=== PATIENT | female | born 1945 | race Caucasian/White ===

== ENCOUNTER 2018-01-13 07:10 | Observation (INO) ==
[2018-01-13 07:55] LABS: Basophils % 0.3 %; Eosinophils # 0.4 K/mcL (0.0-0.6); Eosinophils % 4.5 %; Hematocrit 40.2 % (35.3-44.9); Hemoglobin 13.2 g/dL (11.5-15.4); Immature Granulocytes % 0.2 % (0-4); Lymphocytes # 1.6 K/mcL (0.6-4.6); Lymphocytes % 17.9 %; Mean Corpuscular HGB Conc 32.8 g/dL (31.6-35.5); Mean Corpuscular Hemoglobin 29.6 pg (28.0-33.3); Mean Corpuscular Volume 90.1 fL (83.0-100.0); Mean Platelet Volume 10.6 fL (9.4-12.4); Monocytes # 0.8 K/mcL (0.0-1.3); Monocytes % 8.6 %; Platelet Count 250 K/mcL (140-400); Red Blood Count 4.46 M/mcL (3.82-4.97); Segmented Neutrophils % 68.5 %
[2018-01-13 08:00] LABS: Prothrombin Time 10.8 Seconds (9.4-12.1)
--- NOTE | 2018-01-13 08:02 | Emergency Department Note ---
Disposition Clinical Impression: Dizziness Disposition: Admitted As Inpatient Condition: Fair Referrals: Sosa Tuttle MD [Primary Care Provider] - Forms: ED Satisfaction Letter Time of Disposition: 11:37 Dizziness HPI - General Chief Complaint: ED Dizziness Stated Complaint: dizziness/elevated BP Time Seen by Provider: 01/13/18 07:21 Source: patient, family Limitations: no limitations Nursing Notes Reviewed: Yes Vital Signs Reviewed: Yes - History of Present Illness HPI Narrative: Alert and oriented nontoxic-appearing 72-year-old female presents for evaluation of dizziness, lightheadedness, visual disturbances, and elevated blood pressure. Symptoms began abruptly as she woke up at 4:30 AM to use the restroom. She describes a sensation of the room spinning. She denies any previous episodes such as this. She states that she did have a hard time walking to the bathroom, she had to hold onto the boyd and counters in order to ambulate without falling. She states symptoms did slightly improve with rest and immobilization. Symptoms are markedly worse with any type of movement. She denies any vomiting but states that she did feel nauseated when symptoms were at its worst. She does state significant improvement as of right now while she is lying in the bed. She denied any chest pain or palpitations. She does complain of being slightly short of breath over the past few days but denies any cough or hemoptysis. She denies any numbness/tingling/weakness of the extremities. She does complain of a headache, however states that she has a history of migraines. She states that her headache is much improved since symptom onset. She stated that her blood pressure was 190/84 upon wakening. She did take her regularly prescribed dose of Toprol-XL 25 mg. At the time of my examination, her blood pressure is 150 systolic. Pt Subjective Complaint: dizziness, lightheadedness, other (I blood pressure, visual disturbances) Onset (ago): hour(s) (0430) Timing: sudden onset Description: "room spinning" History of similar episodes: No History of trauma: No Severity: moderate Improves with: remaining still Worsens with: movement Associated symptoms: Reports: ataxia, shortness of breath, vision changes, nausea. Denies: chest pain, confusion, diaphoresis, fever, chills, malaise, syncope, weakness, vomiting, palpitations - Related Data Allergies Allergy/AdvReac Type Severity Reaction Status Date / Time No Known Allergies Allergy Verified 01/13/18 07:12 All systems ED: reviewed and negative except as stated. Constitutional: Denies: fever, chills, weakness, weight change Eyes: Reports: as per HPI, vision change. Denies: eye pain, eye discharge ENT ED: Denies: ear pain, throat pain, dental pain, hearing loss, epistaxis, congestion, dysphagia Cardiovascular: Denies: chest pain, palpitations, dyspnea on exertion, edema, syncope Respiratory: Denies: cough, dyspnea, wheezes, hemoptysis, stridor Gastrointestinal: Reports: as per HPI, nausea. Denies: abdominal pain, vomiting , diarrhea, constipation, hematemesis, melena, hematochezia Genitourinary: Denies: dysuria, frequency, hematuria, discharge Musculoskeletal: Denies: back pain, neck pain, arthralgia, myalgia Integumentary: Denies: rash, abrasion, lesions Neurological: Reports: as per HPI, headache, other (Dizziness, lightheadedness) . Denies: weakness, numbness, paresthesias, confusion, abnormal gait, vertigo Psychiatric: Denies: anxiety, depression, suicidal thoughts, homicidal thoughts , auditory hallucinations, visual hallucinations Endocrine: Denies: fatigue Hematological/Lymphatic: Denies: easy bleeding, easy bruising Allergic/Immunologic: Denies: facial swelling, urticaria Past Medical History - Past Medical History Attestation: Yes The following information was validated with the patient. Source: patient, nursing notes reviewed Medical history: Reports: hypertension Psychiatric history: Reports: no psych history - Social History Smoking Status: Never smoker Smokeless Tobacco Status: No Alcohol use: Reports: none Drug use: Reports: none Physical Exam - General Limitations: no limitations General appearance: alert, in no apparent distress - Head Head exam: atraumatic, normocephalic, normal inspection - Eye Eye exam: Present: normal appearance, PERRL, EOMI, nystagmus (Horizontal nystagmus with fast component to the right) - Expanded Eye Exam Pupils: Bilateral: regular, round, reactive, size (3) - ENT ENT exam: mucous membranes moist - Expanded ENT Exam TM/Canal: Hemotympanum: Negative, Erythema: Negative, Bulging: Negative, Effusion: Negative, Perforation: Negative, Loss of Landmarks: Negative, Foreign body: Negative, Cerumen impaction: Negative, Canal discharge: Negative, Canal tenderness: Negative - Neck Neck exam: Present: normal inspection, full ROM, trachea midline. Absent: tenderness, meningismus, lymphadenopathy - Chest Chest inspection: Present: normal inspection, symmetric chest wall rise - Respiratory Respiratory exam: Present: normal lung sounds bilaterally. Absent: respiratory distress, wheezes, stridor, accessory muscle use, prolonged expiratory phase - Cardiovascular Cardiovascular exam: Present: regular rate, normal rhythm, normal heart sounds - Abdominal Exam Abdominal exam: Present: soft, Non-Tender, normal bowel sounds - Extremities Exam Extremities exam: Present: normal inspection, full ROM. Absent: tenderness, pedal edema - Neurological Exam Neurological exam: Present: alert, oriented X3. Absent: motor sensory deficit - Expanded Neurological Exam Motor strength - LUE: 5/5 Motor strength - RUE: 5/5 Motor strength - LLE: 5/5 Motor strength - RLE: 5/5 Coma Scale Eye Opening: Spontaneous Coma Scale Motor Response: Obeys Commands Coma Scale Verbal Response: Oriented Coma Scale Total: 15 - Psychiatric Psychiatric exam: Present: normal affect, normal mood - Skin Skin exam: Present: warm, dry, intact, normal color. Absent: rash Course - Reevaluation(s) Reevaluation #1: The patient does state significant improvement in symptoms after the administration of Antivert however she is still slightly lightheaded and slightly ataxic with her gait when she ambulated to the restroom. I discussed this with Dr. Salinas. Dr. Salinas is in agreement with ordering an MRI of the brain without contrast to further evaluate. Time: 09:19 Vital Signs Temperature 97.6 F 01/13/18 07:12 Pulse Rate 75 01/13/18 07:12 Respiratory Rate 16 01/13/18 07:12 Blood Pressure 178/96 01/13/18 07:12 O2 Sat by Pulse Oximetry 96 01/13/18 07:12 Temperature 97.6 F 01/13/18 07:12 Pulse Rate 68 01/13/18 08:53 Respiratory Rate 18 01/13/18 07:51 Blood Pressure 158/71 01/13/18 08:53 O2 Sat by Pulse Oximetry 95 01/13/18 07:51 Oxygen Delivery Oxygen Delivery Room Air Dizziness - Medical Records Medical records reviewed: Yes I reviewed the patient's medical records. - Lab Data Lab results reviewed: Yes I reviewed the patient's lab results. Result diagrams: 01/13/18 07:45 01/13/18 07:45 Lab Results 01/13/18 01/13/18 01/13/18 Range/Units 07:45 07:45 07:45 WBC 8.8 (4.3-11.1) K/mcL RBC 4.46 (3.82-4.97) M/mcL Hgb 13.2 (11.5-15.4) g/dL Hct 40.2 (35.3-44.9) % MCV 90.1 (83.0-100.0) fL MCH 29.6 (28.0-33.3) pg MCHC 32.8 (31.6-35.5) g/dL RDW 13.0 (11.5-14.5) % Plt Count 250 (140-400) K/mcL MPV 10.6 (9.4-12.4) fL Immature Gran % 0.2 (0-4) % Seg Neutrophils % 68.5 % Lymphocytes % 17.9 % Monocytes % 8.6 % Eosinophils % 4.5 % Basophils % 0.3 % Neutrophils # 6.0 (1.6-8.9) K/mcL Lymphocytes # 1.6 (0.6-4.6) K/mcL Monocytes # 0.8 (0.0-1.3) K/mcL Eosinophils # 0.4 (0.0-0.6) K/mcL Basophils # 0.0 (0.0-0.2) K/mcL PT 10.8 (9.4-12.1) Seconds INR 1.0 APTT 30.6 (26.0-36.0) Seconds Sodium 140 (136-145) mEq/L Potassium 3.8 (3.5-5.1) mEq/L Chloride 105 (98-107) mEq/L Carbon Dioxide 28 (23-29) mEq/L BUN 15 (8-23) mg/dL Creatinine 0.59 L (0.60-1.20) mg/dL Est GFR ( Amer) > 60 (> 60) Est GFR (Non-Af Amer) > 60 (> 60) BUN/Creatinine Ratio 25 (6-26) Glucose 113 H (70-105) mg/dL Calculated Osmolality 292 (280-300) Calcium 8.9 (8.6-10.3) mg/dL Troponin I < 0.03 (< 0.04) ng/mL Urine Color (Yellow) Urine Clarity (Clear) Urine pH (5.0-8.0) pH Units Ur Specific [place] (1.010-1.025) Urine Protein (Neg-Trace) mg/dL Urine Glucose (UA) (Normal) mg/dL Urine Ketones (Negative) mg/dL Urine Blood (Negative) Urine Nitrite (Negative) Urine Bilirubin (Negative) Urine Urobilinogen (Normal) mg/dL Ur Leukocyte Esterase (Negative) Urine Microscopic RBC (0-3) per hpf Urine Microscopic WBC (0-3) per hpf Ur Squamous Epith Cells (None-Few) per lpf Urine Bacteria (None-Few) per hpf Hyaline Casts (None-Few) per lpf Ur Culture Indicated? (NO) 01/13/18 Range/Units 08:25 WBC (4.3-11.1) K/mcL RBC (3.82-4.97) M/mcL Hgb (11.5-15.4) g/dL Hct (35.3-44.9) % MCV (83.0-100.0) fL MCH (28.0-33.3) pg MCHC (31.6-35.5) g/dL RDW (11.5-14.5) % Plt Count (140-400) K/mcL MPV (9.4-12.4) fL Immature Gran % (0-4) % Seg Neutrophils % % Lymphocytes % % Monocytes % % Eosinophils % % Basophils % % Neutrophils # (1.6-8.9) K/mcL Lymphocytes # (0.6-4.6) K/mcL Monocytes # (0.0-1.3) K/mcL Eosinophils # (0.0-0.6) K/mcL Basophils # (0.0-0.2) K/mcL PT (9.4-12.1) Seconds INR APTT (26.0-36.0) Seconds Sodium (136-145) mEq/L Potassium (3.5-5.1) mEq/L Chloride (98-107) mEq/L Carbon Dioxide (23-29) mEq/L BUN (8-23) mg/dL Creatinine (0.60-1.20) mg/dL Est GFR ( Amer) (> 60) Est GFR (Non-Af Amer) (> 60) BUN/Creatinine Ratio (6-26) Glucose (70-105) mg/dL Calculated Osmolality (280-300) Calcium (8.6-10.3) mg/dL Troponin I (< 0.04) ng/mL Urine Color Yellow (Yellow) Urine Clarity Cloudy A (Clear) Urine pH 6.5 (5.0-8.0) pH Units Ur Specific [place] 1.013 (1.010-1.025) Urine Protein Negative (Neg-Trace) mg/dL Urine Glucose (UA) Normal (Normal) mg/dL Urine Ketones Negative (Negative) mg/dL Urine Blood Negative (Negative) Urine Nitrite Negative (Negative) Urine Bilirubin Negative (Negative) Urine Urobilinogen Normal (Normal) mg/dL Ur Leukocyte Esterase Large H (Negative) Urine Microscopic RBC 0-3 (0-3) per hpf Urine Microscopic WBC 30-50 H (0-3) per hpf Ur Squamous Epith Cells Many H (None-Few) per lpf Urine Bacteria None Seen (None-Few) per hpf Hyaline Casts None Seen (None-Few) per lpf Ur Culture Indicated? NO. (NO) - Radiology Data Radiology results reviewed: Yes I reviewed the patient's radiology results. - EKG Data EKG attestation: Yes I reviewed and interpreted this EKG. EKG results narrative: EKG reviewed by Dr. Salinas as well. EKG shows an ectopic atrial rhythm at a rate of 71 bpm. HI interval 150, QRS duration 97, QT/QTc interval 395/417. No ST elevation noted. No old EKG for comparison. S.B.A.R. - S.B.A.R. Situation: Demographics, MOA Background: Presenting Complaint, Relevant PMH, Meds, & Allergies Assessment: Vital Signs, Course and respsone to treatment, Exam Concerns, Patient/Family Expectation, Pertinant Lab Results, Outstanding Labs Recommendation: Barrier(s) to disposition, Recommendation based on pending studies, treatments, or consults S.B.A.R. Report Given to: Dr. Brad Wang Repor Time: 11:37 Attestation Statement - Attestation Attestation: For this encounter, I have reviewed the [employer] or PA documentation, treatment plan, and medical decision making; and I have had face to face time with this patient. [id number] time provided Patient appears in no acute distress on exam. Labs reviewed by me. Transcribe CT head report reviewed by me. ECG reviewed by me 11:41: Test results discussed with patient. She is still dizzy. MRI indicates multiple chronic ischemic infarcts. The family requests admission for further evaluation and workup.
[2018-01-13 08:03] LABS: Activated Partial Thrombo Time 30.6 Seconds (26.0-36.0)
[2018-01-13 08:21] LABS: BUN/Creatinine Ratio 25 (6-26); Blood Urea Nitrogen 15 mg/dL (8-23); Calcium 8.9 mg/dL (8.6-10.3); Carbon Dioxide 28 mEq/L (23-29); Chloride 105 mEq/L (98-107); Glucose 113 mg/dL (70-105); Osmolality,Calculated 292 (280-300); Potassium 3.8 mEq/L (3.5-5.1); Sodium 140 mEq/L (136-145); eGFR For African Americans > 60 (> 60); eGFR For Non-African Americans > 60 (> 60)
[2018-01-13 08:22] LABS: Troponin I < 0.03 ng/mL (< 0.04)
[2018-01-13 08:34] LABS: Bilirubin,Urine Negative (Negative); Blood,Urine Negative (Negative); Clarity,Urine Cloudy (Clear); Color,Urine Yellow (Yellow); Glucose,Urine (UA) Normal (Normal); Ketones,Urine Negative (Negative); Leukocyte Esterase,Urine Large (Negative); Nitrite,Urine Negative (Negative); PH,Urine 6.5 pH Units (5.0-8.0); Protein,Urine Negative (Neg-Trace); Specific Gravity,Urine 1.013 (1.010-1.025); Urobilinogen,Urine Normal (Normal)
[2018-01-13 08:37] LABS: Bacteria,Urine None Seen per hpf (None-Few); Hyaline Casts,Urine None Seen per lpf (None-Few); RBC,Urine 0-3 per hpf (0-3); Squamous Epithelial Cell,Urine Many per lpf (None-Few); WBC,Urine 30-50 per hpf (0-3)
[2018-01-13] MEDS ORDERED: Aspirin 81 MG TAB.CHEW PO STA (12:21)
--- NOTE | 2018-01-13 12:46 | Internal Med History&Physical ---
Date of Encounter: 01/13/18 Time of Encounter: 12:35 Assessment and Plan (1) Vertigo Current visit: Yes Status: Acute Admit for observation Neuro checks q4 hrs Telemetry NSR on telemetry Neuro consulted because of imaging findings (multiple non-acute strokes) CT-Head did not show ICH or acute findings MRI brain- findings as noted above MRA head and neck Echocardiogram PT/OT/ST Aspirin 324 Lipid panel Continue Meclazine (2) Stroke Current visit: Yes Status: Chronic Multiple areas of non-acute strokes Relation to present symptoms undetermined Plan as noted above (ASA, PT/OT/ST, telemetry, neuro checks, MRA, echo, neuro conuslt, lipid panel and A1c) Qualifiers: CVA mechanism: unspecified Qualified Code(s): I63.9 - Cerebral infarction, unspecified (3) Hypertension Current visit: No Status: Chronic Qualifiers: Hypertension type: essential hypertension Qualified Code(s): I10 - Essential (primary) hypertension Code(s): I10 - Essential (primary) hypertension Internal Medicine - H&P: HPI Chief complaint: Vertigo Admitted From: Emergency Dept Plans for Post Hospital Care: Home History of present illness: Relatively healthy 72 year old woman who presents in the ER this am c/o vertiginous symptoms and nausea without any other significant symptoms including visual changes, head of chest pain, weakness or paresthesia. Her symptoms began at approximately 5:30 am when she woke up feeling dizzy and felt as if the room was spinning. She had to hold to to the boyd to walk to the bathroom. She had an "all over" MAE earlier in the night, which had resolved before her vertiginous symptoms began this am. She has a history of migraine HAs but this MAE was different. Her CT-head w/o contrast did nt show acute changes including ICH, shift or mass effect. Telemetry shows NSR and an ECG is pending. The MRI brain did show multiple areas (left cerebellar, left occipital , bilateral thalami and paraventricular white matter) of infarct, which do not appreciate acute. She has no facial droop, speech changes or any other observable focal neurological changes. Her Neurological exam is also unremarkable accept for vertiginous symptoms reproducible with movement of her head in any direction. She states that remaining still causes resolution of her symptoms. Past Med Surg Social Fam HX - Past Medical History Medical history: hypertension Psychiatric history: no psych history - Social History Smoking Status: Never smoker Smokeless Tobacco Status: No Alcohol use: none Drug use: none Internal Medicine - H&P: Meds Metoprolol [Lopressor] 25 mg PO QAM 01/13/18 [History] Omeprazole [PriLOSEC] 40 mg PO DAILY 01/13/18 [History] Oxaprozin [Daypro] 600 mg PO Q12H PRN 01/13/18 [History] 3 Allergy/AdvReac Type Severity Reaction Status Date / Time No Known Allergies Allergy Verified 01/13/18 11:52 All Systems PM: A 10-system review of systems was performed and is negative for pertinent findings except as documented above in the HPI. - Constitutional Constitutional: no chills, no fatigue, no fever(s), no falls, no lethargy, no night sweats, no weakness, no weight gain - EENT Eyes: no blurry vision, no change in vision, no diplopia, no discharge, no loss of vision, no pain, no photophobia Ears: no ear discharge, no ear pain, no tinnitus Nose, mouth and throat: no dysphagia, no epistaxis, no facial pain, no mouth pain, no nasal discharge, no neck pain, no sore throat, no tongue swelling - Cardiovascular Cardiovascular ROS IM: no chest pain, no diaphoresis, no dyspnea, no dyspnea on exertion, no irregular heart rhythm, no lightheadedness, no orthopnea, no palpitations, no paroxysmal nocturnal dyspnea, no syncope - Respiratory Respiratory: no cough, no dyspnea, no wheezing, no excessive phlegm production - Gastrointestinal Gastrointestinal: constipation, no abdominal pain, no bloating, no coffee ground emesis, no diarrhea, no dyspepsia, no dysphagia, no hematemesis, no hematochezia, no melena, no nausea, no vomiting - Genitourinary Genitourinary: no change in urinary stream, no dysuria, no flank pain, no hematuria - Musculoskeletal Musculoskeletal ROS IM: no numbness, no tingling - Integumentary Integumentary IM: no rash, no unusual bruising - Neurological Neurological ROS: no confusion, no convulsions, no focal weakness, no numbness, no tingling, no tremor(s) - Psychiatric Psychiatric: no auditory hallucinations, no behavioral changes, no confusion, no depression, no irritability, no paranoia, no suicidal ideation, no visual hallucinations - Hematologic/Lymphatic Hematologic/Lymphatic: no easy bruising - Constitutional Vitals: Temp Pulse Resp BP Pulse Ox 97.6 F 80 20 143/89 93 01/13/18 07:12 01/13/18 11:51 01/13/18 11:51 01/13/18 11:51 01/13/18 11:51 General appearance: Present: A&O X 3, no acute distress - Head Head exam: Present: atraumatic, normocephalic - Eye Eye exam: Present: EOMI, PERRL, conjuntiva pink, sclera anicteric - ENT ENT exam: Present: mucous membranes moist - Respiratory Respiratory exam: Present: CTAB. Absent: rales, respiratory distress, rhonchi, stridor, wheezes - Cardiovascular Cardiovascular exam: Present: RRR, +S1, +S2. Absent: bradycardia, diastolic murmur, rubs - GI/Abdominal GI/Abdominal exam: Present: normal bowel sounds. Absent: distended, guarding, rebound, rigid, no peritoneal signs - Neurological Exam Neurological exam: Present: alert, CN II-XII intact, oriented X3, no focal deficits, strengths equal and symetr throughout. Absent: facial droop Internal Med - H&P Results - Labs CBC & Chem 7: 01/13/18 07:45 01/13/18 07:45 Labs: Short CBC 01/13/18 Range/Units 07:45 WBC 8.8 (4.3-11.1) K/mcL Hgb 13.2 (11.5-15.4) g/dL Hct 40.2 (35.3-44.9) % Plt Count 250 (140-400) K/mcL Neutrophils # 6.0 (1.6-8.9) K/mcL BMP 01/13/18 07:45 Sodium 140 Potassium 3.8 Chloride 105 Carbon Dioxide 28 BUN 15 Creatinine 0.59 L Glucose 113 H Calcium 8.9 Cardiac Enzymes 01/13/18 Range/Units 07:45 Troponin I < 0.03 (< 0.04) ng/mL Urine 01/13/18 Range/Units 08:25 Urine Color Yellow (Yellow) Urine Clarity Cloudy A (Clear) Urine pH 6.5 (5.0-8.0) pH Units Ur Specific [place] 1.013 (1.010-1.025) Urine Protein Negative (Neg-Trace) mg/dL Urine Glucose (UA) Normal (Normal) mg/dL - Impressions ITS Impressions Chest X-Ray 01/13/18 07:22 IMPRESSION: No acute process. D/ / Jody Waggnoer MD / Jody Waggoner MD Interpreting Provider: Jody Waggoner MD Head CT 01/13/18 07:22 IMPRESSION: No acute intracranial abnormality. D/ / Odin De La Fuente MD / Odin De La Fuente MD Interpreting Provider: Odin De La Fuente MD Brain MRI 01/13/18 09:19 IMPRESSION: 1. No evidence of acute infarct. 2. 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 3. Cerebral parenchymal volume loss with mild chronic microvascular white matter ischemic disease. D/ / 01/13/2018 11:23:28 Shayan Romero MD / [facility] [place] Interpreting Provider: Shayan Romero MD
[2018-01-13] MEDS ORDERED: Diclofenac Sodium (24 HR) 100 MG TABLET PO PRN (12:51)
[2018-01-13 13:19] LABS: Chol/HDL Ratio 2.6 (0-4.9); Cholesterol 187 mg/dL (< 200); HDL Cholesterol 72 mg/dL (40-59); LDL Cholesterol,Calculated 101 mg/dL (0-99); Triglycerides 69 mg/dL (< 150)
[2018-01-13 13:26] LABS: Estimated Average Glucose 117 mg/dl; Hemoglobin A1C 5.7 %
--- NOTE | 2018-01-13 16:21 | Neurology - Consult Note ---
Date of Encounter: 01/13/18 Time of Encounter: 16:16 Assessment and Plan (1) Dizziness Current Visit: Yes Status: Acute Patient with PMH significant HTN who developed acute onset of dizziness, described as vertiginous feeling associated with nausea, muffled feeling to the left ear, lasting less than few hours in duration along with elevated BP. MRI of brain negative for acute infarct. This likely is related to hypertensive urgency due to significantly elevated BP. other possibilities would include first episode of Meniere syndrome, vestibular neuronitis ( less likely due to rapid improving course of illness) or even BPPV. VBI can give similar picture. Will recommend CTA of brain and neck to exclude major branch cerebral artery stenosis. May benefit from ENT evaluation as an outpatient for hearing test/VNS testing. Patient has evidence of small chronic infarct at the left cerebellar plus subcortical FLAIR/T2 signal changes consistent with ischemic white matter signal changes. Will recommend her to start Aspirin 81mg daily for CVA prevention. Please continue medical and supportive care Total time spent on this case is approximately 50 minutes History of Present Illness Chief complaint: Dizziness HPI: Ms. Allen is a 72 year old female with PMH significant for HTN who developed acute onset of dizziness nausea and balance difficulty. Patient developed some headache the night prior to onset of symptoms. She went to bed at about 12:30am and woke up at about 4:30am and experienced vertiginous feeling associated with nausea and when she tired to walk she felt drunk. BP was around 190 systolically , which usually does not happen. She denies tinnitus but admits that she felt her left ear was muffled. All symptom improved when she arrived the ER. however , when she tried to walk she still slightly unbalanced. Initial CT of head reported no acute intracranial abnormality. MRI of brain: IMPRESSION: 1. No evidence of acute infarct. 2. 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 3. Cerebral parenchymal volume loss with mild chronic microvascular white matter ischemic disease. She has no previous history of CVA. She does have HTN but states that her BP has been well controlled. She states that beside HTN she is healthy. Her dizziness significantly improved. She felt much better now. She states that this morning when she walked to bathroom she still felt slightly unsteady Past Med Surg Social Fam HX - Past Medical History Medical history: hypertension Psychiatric history: no psych history - Past Surgical History Surgical History: hysterectomy - Social History Smoking Status: Never smoker Smokeless Tobacco Status: No Alcohol use: none Drug use: none - Family History Mother Age: 92 Living Status: Still Living Hx Family Cardiac Disorders: Yes (HTN, CKD3) Hx Family Respiratory Disorders: Yes (COPD) Hx Family Endocrine Disorder: Yes (DM) Hx Family Neurologic Disorders: Yes (TIA) Hx Family Medical Disorders: Yes Medications and Allergies Metoprolol [Lopressor] 25 mg PO QAM 01/13/18 [History] Omeprazole [PriLOSEC] 40 mg PO DAILY 01/13/18 [History] Oxaprozin [Daypro] 600 mg PO Q12H PRN 01/13/18 [History] 3 Allergy/AdvReac Type Severity Reaction Status Date / Time No Known Allergies Allergy Verified 01/13/18 11:52 All Systems: The remainder of the systems were reviewed and are negative Physical Examination - Vital Signs Vital Signs: Initial Vital Signs Temp Pulse Resp BP Pulse Ox 97.6 F 75 16 178/96 96 01/13/18 07:12 01/13/18 07:12 01/13/18 07:12 01/13/18 07:12 01/13/18 07:12 - Constitutional General appearance: comfortable - Neurologic Detailed motor examination: full strength in all major muscle groups Motor examination - right side: 5/5: deltoids, biceps, triceps, wrist flexion, wrist extension, claims assistant, hip flexors, tibialis Anterior, quadriceps, toe extension (EHL), plantarflexion Motor examination - left side: 5/5: deltoids, biceps, triceps, wrist flexion, wrist extension, hip flexors, claims assistant, quadriceps, tibialis Anterior, toe extension (EHL), plantarflexion Mental Status Examination: awake, alert, oriented to person, oriented to place, oriented to time, follows commands appropriately, answers questions appropriately, no agnosia, no aphasia, no aproxia Cranial nerve examination: PERRL, EOMI, visual gavin intact, corneal reflexes brisk symmetrically, sensory to face intact, mastication intact, no facial asymmetry is present, no dysarthria, hearing is intact symmetrically, soft palate elevates bilaterally upon phonation, gag reflex intact, flexes SCM and trapezius muscles symmetrically with full power, tongue protrudes midline, no atrophy or facial fasiculations present Cerebellar examination: no dysmetria, performs finger to nose and heel to phillips symmetrically without ataxia, no difficulty with rapid alternating movements Results - Laboratory Findings CBC and BMP: 01/13/18 07:45 01/13/18 07:45 Abnormal lab findings: Abnormal lab results Creatinine 0.59 mg/dL (0.60-1.20) L 01/13/18 07:45 Glucose 113 mg/dL (70-105) H 01/13/18 07:45 Hemoglobin A1c 5.7 % (-5.6) H 01/13/18 07:49 LDL Cholesterol, Calc 101 mg/dL (0-99) H 01/13/18 07:45 HDL Cholesterol 72 mg/dL (40-59) H 01/13/18 07:45 Urine Clarity Cloudy (Clear) A 01/13/18 08:25 Ur Leukocyte Esterase Large (Negative) H 01/13/18 08:25 Urine Microscopic WBC 30-50 per hpf (0-3) H 01/13/18 08:25 Ur Squamous Epith Cells Many per lpf (None-Few) H 01/13/18 08:25 Consult Discharge Plan - Plan Referrals: Sosa Tuttle MD [Primary Care Provider] -
[2018-01-13] MEDS: Diclofenac Sodium (24 HR) 100 MG TABLET PO PRN (18:18)
[2018-01-14 05:27] LABS: Basophils # 0.1 K/mcL (0.0-0.2); Basophils % 0.7 %; Eosinophils # 0.4 K/mcL (0.0-0.6); Eosinophils % 5.3 %; Hematocrit 37.7 % (35.3-44.9); Hemoglobin 12.6 g/dL (11.5-15.4); Immature Granulocytes % 0.3 % (0-4); Lymphocytes # 2.1 K/mcL (0.6-4.6); Lymphocytes % 31.5 %; Mean Corpuscular HGB Conc 33.4 g/dL (31.6-35.5); Mean Corpuscular Hemoglobin 29.6 pg (28.0-33.3); Mean Corpuscular Volume 88.7 fL (83.0-100.0); Mean Platelet Volume 10.5 fL (9.4-12.4); Monocytes # 0.7 K/mcL (0.0-1.3); Monocytes % 10.3 %; Neutrophils # 3.5 K/mcL (1.6-8.9); Platelet Count 229 K/mcL (140-400); Red Blood Count 4.25 M/mcL (3.82-4.97); Red Cell Distribution Width 13.2 % (11.5-14.5); Segmented Neutrophils % 51.9 %
[2018-01-14 05:42] LABS: BUN/Creatinine Ratio 28 (6-26); Blood Urea Nitrogen 16 mg/dL (8-23); Calcium 8.5 mg/dL (8.6-10.3); Carbon Dioxide 28 mEq/L (23-29); Chloride 108 mEq/L (98-107); Glucose 107 mg/dL (70-105); Osmolality,Calculated 294 (280-300); Potassium 3.9 mEq/L (3.5-5.1); Sodium 141 mEq/L (136-145); eGFR For African Americans > 60 (> 60); eGFR For Non-African Americans > 60 (> 60)
--- NOTE | 2018-01-14 08:04 | Electrocardiograph Report ---
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
[2018-01-14] MEDS: Diclofenac Sodium (24 HR) 100 MG TABLET PO PRN (09:39)
[2018-01-14] MEDS ORDERED: Acetaminophen 325 MG TABLET PO PRN (10:38)
[2018-01-14 11:47] VITALS: BP 181/65
--- NOTE | 2018-01-14 13:16 | Discharge Summary ---
Date of Encounter: 01/15/18 Time of Encounter: 13:12 - Discharge Diagnosis (1) Vertigo Priority: Primary Status: Acute Code(s): R42 - Dizziness and giddiness SNOMED Code(s): 527322182 (2) Stroke Priority: Primary Status: Chronic Qualifiers: CVA mechanism: unspecified Qualified Code(s): I63.9 - Cerebral infarction, unspecified (3) Hypertension Priority: Primary Status: Chronic Qualifiers: Hypertension type: essential hypertension Qualified Code(s): I10 - Essential (primary) hypertension Code(s): I10 - Essential (primary) hypertension Hospital course: Ms. Allen is a 72 year old female who presented with vertiginous feelings associated with nausea and hypertensive urgency. She went to bed at about 12: 30am and woke up at about 4:30am with her current symptoms. She has a history of essential HTN but in the ER her SBP was approximately 190 mmHg. Most of her symptoms improved when she arrived the ER except when she tried to walk she still slightly unbalanced. The initial CT of head reported no acute intracranial abnormality, but the MRI brain did show chronic infarcts are noted in the left cerebellar hemisphere, left occipital lobe, bilateral thalami, and bilateral periventricular white matter. She was admitted for stroke/TIA w/u including echocardiogram, MRI brain, MRA Head and neck. Because of MRI findings neurology suggested obtaining CTA-Head and neck. No significant occlusions were noted. Her BP was controlled and her symptoms improved. Her telemetry did not show A-Fib and the Echocardiogram showed evidence of LVH consistent with her elevated BP. Her LDL was minimally elevated and a low dose statin was started. BP mgt was optimizes and she risk reduction d/w the patient. Meclazine was given in the ER and will be continued short term as she felt it helped with her symptoms. At the time of discharge her presenting symptoms had resolved and she had no other focal neurological deficits and her exam was unremarkable. She will also be given aspirin 81 mg once daily. She will f/u with her PCP and continue a risk reduction strategy. Discharge discussed with: patient, nurse Time spent discussing smoking cessation with patient: more than 10 minutes - Time Spent with Patient Total time spent providing and/or coordinating discharge services: Greater than 30 minutes - Discharge Medications Prescriptions: Aspirin 81 mg PO DAILY 30 Days #30 tab.chew Lisinopril [Zestril] 10 mg PO DAILY 30 Days #30 tablet Meclizine [Antivert] 25 mg PO TID PRN 7 Days #21 tablet PRN Reason: Dizziness Metoprolol Succinate [Toprol Xl] 25 mg PO DAILY 30 Days #30 tab.er.24h Rosuvastatin [Crestor] 20 mg PO HS 30 Days #30 tablet Home Medications: Omeprazole [PriLOSEC] 40 mg PO DAILY 01/13/18 [History] Oxaprozin [Daypro] 600 mg PO Q12H PRN 01/13/18 [History] Aspirin 81 mg PO DAILY 30 Days #30 tab.chew 01/14/18 [Rx] Lisinopril [Zestril] 10 mg PO DAILY 30 Days #30 tablet 01/14/18 [Rx] Meclizine [Antivert] 25 mg PO TID PRN 7 Days #21 tablet 01/14/18 [Rx] Metoprolol Succinate [Toprol Xl] 25 mg PO DAILY 30 Days #30 tab.er.24h 01/14/18 [Rx] Rosuvastatin [Crestor] 20 mg PO HS 30 Days #30 tablet 01/14/18 [Rx] Allergies/Adverse Reactions: 3 Allergy/AdvReac Type Severity Reaction Status Date / Time No Known Allergies Allergy Verified 01/13/18 11:52 Date of admission: 01/13/18 13:40 Primary care physician: Sosa Tuttle MD Consults: 01/13/18 14:58 Consult to Pastoral Services [CONS] Routine Comment: - Constitutional Vitals: Temp Pulse Resp BP Pulse Ox 98 F 80 18 181/65 95 01/14/18 11:46 01/14/18 11:46 01/14/18 11:46 01/14/18 11:46 01/14/18 11:46 General appearance: Present: A&O X 3, no acute distress, answers questions appropriately - Head Head exam: Present: atraumatic, normocephalic - Eye Eye exam: Present: EOMI, PERRL, conjuntiva pink, sclera anicteric Pupils: Present: PERRL - Neck Neck exam general surgery: Present: supple, trachea midline. Absent: lymphadenopathy - Respiratory Respiratory exam: Present: CTAB. Absent: accessory muscle use, rales, rhonchi, wheezes - Cardiovascular Cardiovascular exam: Present: RRR, +S1, +S2. Absent: diastolic murmur, gallop, rubs, systolic murmur - GI/Abdominal GI/Abdominal exam: Present: normal bowel sounds, soft, no peritoneal signs. Absent: distended, tenderness - Extremities Exam Extremities exam: Present: warm. Absent: calf tenderness, cyanotic, pedal edema - Neurological Exam Neurological exam: Present: alert, CN II-XII intact, oriented X3, no focal deficits, strengths equal and symetr throughout. Absent: motor sensory deficit , pronater drift, facial droop, speech deficit - Psychiatric Psychiatric exam: Present: normal affect, normal mood - Skin Skin exam: Present: dry, intact - Patient Status Disposition: Home, Self-Care Condition: Fair - Discharge Instructions Instructions: Lisinopril (By mouth), Chronic Hypertension (DC) Follow Up With: Sosa Tuttle MD [Primary Care Provider] - 01/20/18 12:40 pm (please bring your insurance card and $20 for possible copay)
[2018-01-15] MEDS ORDERED: Metoprolol XL (24 HR) Succ 25 MG TAB.ER.24H PO SCH (09:00)
[2018-01-15] MEDS ORDERED: Aspirin 81 MG TAB.CHEW PO SCH (09:00)
== END 2018-01-14 15:02 | disposition home or self-care (01) ==
LOC: 2ANU 07:10 → EMEROO 07:10 → 2ANU 14:22
PROVIDERS: ADMIT Student in an Organized Health Care Education/Training Program; ATTEND Family Medicine